=== PATIENT | male | born 1970 | race African-American/Black ===

== ENCOUNTER 2024-06-06 12:29 | Inpatient (IN) | payer OTHER ==
[~2024-06-06] VITALS: Ht 177.8 cm; Wt 71.2 kg
[2024-06-06 03:51] VITALS: PULSE 69; RESP 18; O2SAT 95
[2024-06-06 13:08] VITALS: PULSE 66; RESP 16; O2SAT 99
[2024-06-06] MEDS: hydrALAZINE HCL 20 MG/ML VL IV ONE (13:11)
[2024-06-06 13:49] LABS: Basophils # (auto) 0.1 10 ^3/uL (0-0.2); Basophils % (auto) 0.8 % (0.0-2.0); Eosinophils # (auto) 0.1 10 ^3/uL (0-0.8); Eosinophils % (auto) 1.8 % (0.0-7.0); Hematocrit 46.9 % (41.0-53.0); Lymphocytes # (auto) 2.1 10 ^3/uL (0.4-5.4); Lymphocytes % (auto) 27.7 % (10.0-50.0); Mean Corpuscular Hemoglobin 30.8 pg (28.0-32.0); Mean Corpuscular Hgb Conc. 34.2 g/dL (32.0-36.0); Mean Corpuscular Volume 90.2 fL (80.0-100.0); Monocytes # (auto) 0.6 10 ^3/uL (0-1.3); Monocytes % (auto) 8.3 % (0.0-12.0); Neutrophils # (auto) 4.6 10 ^3/uL (1.6-8.6); Neutrophils % (auto) 61.4 % (37.0-80.0); Nucleated Red Blood Cells % 0.1 %; Platelet Count (auto) 241 10^3/uL (140-450); Red Cell Distribution Width 13.5 % (11.8-14.3); White Blood Cell 7.6 10^3/uL (4.4-10.8)
[2024-06-06 13:59] LABS: Chloride 103 mmol/L (98-107); Sodium 140 mmol/L (136-145)
[2024-06-06 14:00] LABS: Anion Gap 4 (5-15); Calcium 10.1 mg/dL (8.7-10.4); Carbon Dioxide 33 mmol/L (20-30)
[2024-06-06 14:05] LABS: BUN/Creatinine Ratio 6.8 (10.0-20.0); Blood Urea Nitrogen 8 mg/dL (9-23); Glucose 103 mg/dL (74-106)
[2024-06-06] MEDS: POTASSIUM CHL 20 Meq TABLET PO ONE (14:42)
[2024-06-06] MEDS ORDERED: MORPHINE SULFATE INJ 2 MG/ml SYRG IV PRN (16:00)
[2024-06-06] MEDS ORDERED: NITROGLYCERIN 0.4 MG SL TAB SL PRN (16:00)
[2024-06-06] MEDS ORDERED: ONDANSETRON HCL 4 MG/2 ML VIAL IV PRN (16:00)
[2024-06-06] MEDS ORDERED: DOCUSATE SOD 100 MG CAP PO PRN (16:00)
[2024-06-06] MEDS ORDERED: ACETAMINOPHEN 325 MG TAB PO PRN (16:00)
[2024-06-06] MEDS: amLODIPine BESYLATE 5 MG TAB PO ONE (16:57)
[2024-06-06] MEDS: hydrALAZINE HCL 20 MG/ML VL IV PRN (17:47)
[2024-06-06 17:49] LABS: Urine Bacteria None Seen /hpf (None Seen)
[2024-06-06 17:56] LABS: Urine Blood Negative /uL (Negative); Urine Clarity Clear (Clear); Urine Color Colorless (Yellow); Urine Protein, UAD Negative (Negative); Urine Specific Gravity 1.005 (1.001-1.035); Urine Urobilinogen Normal (Negative); Urine WBC <1 /hpf (0 - 3)
[2024-06-06] MEDS: HYDROcodone-ACET 5/325MG TAB PO PRN (18:26)
[2024-06-06 19:18] VITALS: PULSE 100; RESP 18; O2SAT 94
[2024-06-06] MEDS: cloNIDine HCL 0.1 MG TAB PO PRN (20:08)
[2024-06-06] MEDS: SODIUM CHLOR 0.9% PF (SALINE LOCK) 10ML VIAL/SYR IV SCH (22:01)
[2024-06-06] MEDS: METOPROLOL TARTRATE 50 MG TAB PO SCH (22:16)
[2024-06-07] VITALS (8 sets, daily range): BP systolic 140–156; BP diastolic 70–98; PULSE 55–74; RESP 17–20; TEMP 97.9–98.1; O2SAT 95–98
[2024-06-07 06:59] LABS: Basophils # (auto) 0.1 10 ^3/uL (0-0.2); Eosinophils # (auto) 0.1 10 ^3/uL (0-0.8); Eosinophils % (auto) 1.7 % (0.0-7.0); Hematocrit 43.8 % (41.0-53.0); Hemoglobin 14.9 g/dL (13.5-17.5); Lymphocytes # (auto) 1.8 10 ^3/uL (0.4-5.4); Lymphocytes % (auto) 23.9 % (10.0-50.0); Mean Corpuscular Hemoglobin 30.5 pg (28.0-32.0); Mean Corpuscular Hgb Conc. 34.1 g/dL (32.0-36.0); Mean Corpuscular Volume 89.5 fL (80.0-100.0); Monocytes # (auto) 0.6 10 ^3/uL (0-1.3); Monocytes % (auto) 8.5 % (0.0-12.0); Neutrophils # (auto) 4.9 10 ^3/uL (1.6-8.6); Neutrophils % (auto) 64.9 % (37.0-80.0); Nucleated Red Blood Cells % 0.1 %; Platelet Count (auto) 218 10^3/uL (140-450); Red Blood Cells 4.89 10^6/uL (4.5-5.90); Red Cell Distribution Width 14.1 % (11.8-14.3); White Blood Cell 7.5 10^3/uL (4.4-10.8)
[2024-06-07 07:13] LABS: Alkaline Phosphatase 56 U/L (46-116); Anion Gap 4 (5-15); Aspartate Aminotransferase 16 U/L (13-40); Calcium 9.5 mg/dL (8.7-10.4); Carbon Dioxide 30 mmol/L (20-30); Chloride 105 mmol/L (98-107); Sodium 139 mmol/L (136-145)
[2024-06-07 07:14] LABS: BUN/Creatinine Ratio 7.1 (10.0-20.0); Blood Urea Nitrogen 8 mg/dL (9-23); Glucose 108 mg/dL (74-106)
[2024-06-07 07:15] LABS: Alanine Aminotransferase 9 U/L (7-40)
[2024-06-07 07:16] LABS: Bilirubin, Total 2.4 mg/dL (0.2-1.0); Total Protein 6.7 g/dL (5.7-8.2)
[2024-06-07] MEDS: amLODIPine BESYLATE 5 MG TAB PO SCH (09:26)
[2024-06-07] MEDS ORDERED: HYDR25TA4 PO (12:48)
[2024-06-07] MEDS ORDERED: LOSA-535 PO (12:48)
[2024-06-07] MEDS ORDERED: AMLO1TAB23 PO (12:48)
[2024-06-07] MEDS ORDERED: POTASSIUM CHL 20 Meq TABLET PO ONE (13:00)
== END 2024-06-07 14:15 | disposition home or self-care (01) | DRG 199 ==
LOC: ER 12:29 → TELE 15:56 → TELE-WESTW 06-07 02:54
PROVIDERS: ADMIT Nurse Practitioner Family; ATTEND Internal Medicine Geriatric Medicine
DX: I16.0 Hypertensive urgency (principal); E87.6 Hypokalemia; Z79.899 Other long term (current) drug therapy; Z91.199 Patient's noncompliance with other medical treatment and regimen due to unspecified reason; I10 Essential (primary) hypertension
CPT/HCPCS: 36415; 80048; 80053; 81001; 85025; 93005; 96374; G0378